=== PATIENT | male | born 1970 | race Caucasian/White ===

== ENCOUNTER 2022-09-02 16:08 | Inpatient (IN) | payer MEDICAID ==
[~2022-09-02] VITALS: Ht 177.8 cm; Wt 126.1 kg
[2022-09-02] VITALS (7 sets, daily range): BP systolic 103–136; BP diastolic 50–97
[2022-09-02 17:29] LABS: BASOPHILS % (AUTO) 0.9 % (0.0-2.0); EOSINOPHILS % (AUTO) 1.6 % (1.0-6.0); HEMATOCRIT 34.9 % (41-53); HEMOGLOBIN 11.2 g/dL (13.5-17.5); LYMPHOCYTES # (AUTO) 1.4 K/uL (1.0-4.8); LYMPHOCYTES % (AUTO) 15.8 % (22.0-44.0); MEAN CORPUSCULAR HEMOGLOBIN 31.4 pg (26.0-34.0); MEAN CORPUSCULAR HGB CONC 32.3 G/dL (31.0-37.0); MEAN CORPUSCULAR VOLUME 98 fL (80-100); MONOCYTES # (AUTO) 0.8 K/uL (0.1-1.0); MONOCYTES % (AUTO) 9.2 % (2.0-9.0); NEUTROPHILS # (AUTO) 6.3 K/uL (1.8-7.7); NEUTROPHILS % (AUTO) 72.5 % (40.0-70.0); PLATELET COUNT (AUTO) 423 K/uL (150-450); RED BLOOD CELL COUNT(AUTO) 3.58 MIL/uL (4.50-5.90)
[2022-09-02 17:40] LABS: CREATININE 10.86 mg/dL (0.60-1.30)
[2022-09-02 17:42] LABS: POTASSIUM 6.5 mmol/L (3.5-5.1)
[2022-09-02] MEDS ORDERED: SODIUM BICARBONATE [ADULT] 8.4% 50 MEQ/50 ML SYRINGE IVP ONE (17:45)
[2022-09-02] MEDS ORDERED: SODIUM POLYSTYRENE SULFONATE 15 GM/60 ML SUSPENSION BOTTLE PO ONE (17:45)
[2022-09-02] MEDS ORDERED: INSULIN REGULAR, HUMAN 100 UNITS/ML IVP ONE (17:45)
[2022-09-02] MEDS ORDERED: CALCIUM GLUCONATE 100 MG/ML 10 ML IVP ONE (17:45)
[2022-09-02] MEDS ORDERED: DEXTROSE 50%-WATER 25 GM/50 ML SYRINGE IVP ONE (17:45)
[2022-09-02] MEDS ORDERED: ONDANSETRON HCL 4 MG/2 ML VIAL IVP PRN (18:15)
[2022-09-02] MEDS ORDERED: ACETAMINOPHEN 325 MG TABLET PO PRN (18:15)
[2022-09-02 18:35] LABS: GLUCOMETER DEV NAME(LOC) ERT.5; GLUCOSE,POINT OF CARE 92 MG/DL (70-110)
[2022-09-02 19:45] LABS: COVID AG,FIA SOURCE NASOPHARYNGEAL
[2022-09-03] VITALS (17 sets, daily range): BP systolic 91–118; BP diastolic 56–76
[2022-09-03] MEDS ORDERED: MAGNESIUM HYDROXIDE SUSPENSION 30 ML UDCUP PO PRN (01:15)
[2022-09-03] MEDS ORDERED: IPRATROPIUM BROMIDE 0.5 MG/2.5 ML NEB SOLUTION NEB PRN (01:15)
[2022-09-03] MEDS ORDERED: ZOLPIDEM TARTRATE 5 MG TABLET PO PRN (01:15)
[2022-09-03] MEDS ORDERED: HYDROCODONE/ACETAMINOPHEN 5-325 MG TABLET PO PRN (01:15)
[2022-09-03] MEDS ORDERED: BISACODYL 10 MG RECTAL RECTAL SUPPOSITORY PR PRN (01:15)
[2022-09-03] MEDS ORDERED: MORPHINE SULFATE 2 MG/ML SYRINGE IVP PRN (01:15)
[2022-09-03] MEDS ORDERED: ALBUTEROL SULFATE 2.5 MG/0.5 ML NEB SOLUTION NEB PRN (01:15)
[2022-09-03 02:05] LABS: CALCIUM, TOTAL 7.1 mg/dL (8.8-10.5); CREATININE 7.77 mg/dL (0.60-1.30); POTASSIUM 3.7 mmol/L (3.5-5.1)
[2022-09-03 02:14] LABS: ALBUMIN 3.1 g/dL (3.4-5.0); BILIRUBIN,TOTAL 0.3 mg/dL (0.1-1.0); TOTAL PROTEIN, SERUM 6.8 g/dL (6.4-8.2)
[2022-09-03 07:00] LABS: APPEARANCE,URINE CLEAR (CLEAR); BILIRUBIN,URINE NEGATIVE (NEGATIVE); GLUCOSE, URINE (UA) NEGATIVE (NEGATIVE); KETONES,URINE NEGATIVE (NEGATIVE); LEUKOCYTE ESTERASE ,URINE MODERATE (NEGATIVE); NITRATE,URINE NEGATIVE (NEGATIVE); OCCULT BLOOD,URINE NEGATIVE (NEGATIVE); PROTEIN,URINE 30-70 mg/dL (NEGATIVE); UROBILINOGEN,URINE <=1.0 mg/dL (<=1.0)
[2022-09-03 07:05] LABS: AMPHET/METH SCREEN,URINE NEGATIVE (NEGATIVE); BARBITURATE SCREEN, URINE NEGATIVE (NEGATIVE); BENZODIAZEPINES SCREEN,URINE NEGATIVE (NEGATIVE); CANNABINOID SCREEN,URINE NEGATIVE (NEGATIVE); COCAINE SCREEN,URINE NEGATIVE (NEGATIVE); METHADONE SCREEN, URINE NEGATIVE (NEGATIVE); OPIATE SCREEN,URINE NEGATIVE (NEGATIVE)
[2022-09-03 07:06] LABS: PHENCYCLIDINE SCREEN,URINE NEGATIVE (NEGATIVE)
[2022-09-03 07:08] LABS: BACTERIA,URINE None Seen /HPF (None Seen); RBC,URINE None Seen /HPF (0-2)
[2022-09-03 07:10] LABS: CREATININE,URINE RANDOM 96.6 mg/dL (30.0-125.0); PROTEIN,URINE RANDOM 49 mg/dL (0-11.9); SODIUM,URINE RANDOM 41 mmol/l (20-110); UREA NITROGEN,URINE RANDOM 450 mg/dL (350-1000)
[2022-09-03] MEDS: ONDANSETRON HCL 4 MG/2 ML VIAL IVP PRN ×3 (08:52→20:46)
[2022-09-03] MEDS: ATORVASTATIN CALCIUM 20 MG TABLET PO SCH (08:52)
[2022-09-03] MEDS: ASPIRIN 81 MG DR TABLET PO SCH (08:52)
[2022-09-03] MEDS: PANTOPRAZOLE SODIUM 40 MG DR TABLET PO SCH (08:52)
[2022-09-03] MEDS: HEPARIN SODIUM,PORCINE 5,000 UNITS/ML VIAL SQ SCH ×3 (08:52→23:38)
[2022-09-03] MEDS: METOPROLOL TARTRATE 25 MG TABLET PO SCH ×2 (08:52→20:42)
[2022-09-03] MEDS: ACETAMINOPHEN 325 MG TABLET PO PRN (10:29)
[2022-09-03 10:30] LABS: BASOPHILS % (AUTO) 0.7 % (0.0-2.0); EOSINOPHILS % (AUTO) 1.7 % (1.0-6.0); HEMATOCRIT 28.4 % (41-53); HEMOGLOBIN 9.5 g/dL (13.5-17.5); LYMPHOCYTES # (AUTO) 0.9 K/uL (1.0-4.8); LYMPHOCYTES % (AUTO) 14.6 % (22.0-44.0); MEAN CORPUSCULAR HEMOGLOBIN 32.1 pg (26.0-34.0); MEAN CORPUSCULAR HGB CONC 33.6 G/dL (31.0-37.0); MEAN CORPUSCULAR VOLUME 96 fL (80-100); MONOCYTES # (AUTO) 0.6 K/uL (0.1-1.0); MONOCYTES % (AUTO) 10.1 % (2.0-9.0); NEUTROPHILS # (AUTO) 4.5 K/uL (1.8-7.7); NEUTROPHILS % (AUTO) 72.9 % (40.0-70.0); PLATELET COUNT (AUTO) 338 K/uL (150-450); RED BLOOD CELL COUNT(AUTO) 2.96 MIL/uL (4.50-5.90); RED CELL DISTRIBUTION WIDTH 16.2 % (11.5-14.5)
[2022-09-03 10:45] LABS: ALBUMIN 3.1 g/dL (3.4-5.0); BILIRUBIN,TOTAL 0.3 mg/dL (0.1-1.0); CALCIUM, TOTAL 6.5 mg/dL (8.8-10.5); CREATININE 8.44 mg/dL (0.60-1.30); POTASSIUM 4.1 mmol/L (3.5-5.1); TOTAL PROTEIN, SERUM 6.8 g/dL (6.4-8.2)
[2022-09-03] MEDS ORDERED: HEPARIN SODIUM,PORCINE 1,000 UNITS/ML VIAL IVCATH ONE ×2 (15:15)
[2022-09-03] MEDS ORDERED: HEPARIN SODIUM,PORCINE 1,000 UNITS/ML VIAL IVP ONE ×2 (16:23)
[2022-09-04] MEDS ORDERED: METOCLOPRAMIDE HCL 5 MG/ML 2 ML VIAL IVP ONE (00:15)
[2022-09-04 04:48] VITALS: BP 140/94
[2022-09-04 06:48] LABS: BASOPHILS % (AUTO) 0.6 % (0.0-2.0); EOSINOPHILS % (AUTO) 1.9 % (1.0-6.0); HEMATOCRIT 30.1 % (41-53); LYMPHOCYTES # (AUTO) 1.8 K/uL (1.0-4.8); LYMPHOCYTES % (AUTO) 24.7 % (22.0-44.0); MEAN CORPUSCULAR HEMOGLOBIN 31.9 pg (26.0-34.0); MEAN CORPUSCULAR HGB CONC 33.3 G/dL (31.0-37.0); MEAN CORPUSCULAR VOLUME 96 fL (80-100); MONOCYTES % (AUTO) 13.7 % (2.0-9.0); NEUTROPHILS # (AUTO) 4.4 K/uL (1.8-7.7); NEUTROPHILS % (AUTO) 59.1 % (40.0-70.0); PLATELET COUNT (AUTO) 357 K/uL (150-450); RED BLOOD CELL COUNT(AUTO) 3.15 MIL/uL (4.50-5.90); RED CELL DISTRIBUTION WIDTH 15.9 % (11.5-14.5)
[2022-09-04 06:56] LABS: PROTHROMBIN TIME 11.1 SEC (9.4-11.6)
[2022-09-04 07:07] LABS: ALBUMIN 3.2 g/dL (3.4-5.0); BILIRUBIN,TOTAL 0.3 mg/dL (0.1-1.0); CALCIUM, TOTAL 6.5 mg/dL (8.8-10.5); CHOL/HDL RATIO 3.2 (4.2-7.3); CREATININE 5.77 mg/dL (0.60-1.30); POTASSIUM 3.9 mmol/L (3.5-5.1); TOTAL PROTEIN, SERUM 7.2 g/dL (6.4-8.2)
[2022-09-04 07:17] VITALS: BP 111/58
[2022-09-04] MEDS: HEPARIN SODIUM,PORCINE 5,000 UNITS/ML VIAL SQ SCH ×2 (08:00→15:09)
[2022-09-04 08:06] LABS: HEPATITIS C AB (EIA) <0.1 s/co ratio (0.0-0.9)
[2022-09-04] MEDS: ATORVASTATIN CALCIUM 20 MG TABLET PO SCH (08:42)
[2022-09-04] MEDS: METOPROLOL TARTRATE 25 MG TABLET PO SCH ×2 (08:42→21:00)
[2022-09-04] MEDS: PANTOPRAZOLE SODIUM 40 MG DR TABLET PO SCH (08:43)
[2022-09-04] MEDS: ASPIRIN 81 MG DR TABLET PO SCH (08:43)
[2022-09-04 10:49] VITALS: BP 110/68
[2022-09-04 14:45] VITALS: BP 112/60
[2022-09-04 20:13] VITALS: BP 108/64
[2022-09-05] VITALS (11 sets, daily range): BP systolic 102–121; BP diastolic 61–84
[2022-09-05 06:25] LABS: BASOPHILS % (AUTO) 0.6 % (0.0-2.0); EOSINOPHILS % (AUTO) 2.1 % (1.0-6.0); HEMATOCRIT 27.3 % (41-53); HEMOGLOBIN 9.4 g/dL (13.5-17.5); LYMPHOCYTES # (AUTO) 1.2 K/uL (1.0-4.8); LYMPHOCYTES % (AUTO) 16.5 % (22.0-44.0); MEAN CORPUSCULAR HEMOGLOBIN 32.6 pg (26.0-34.0); MEAN CORPUSCULAR HGB CONC 34.6 G/dL (31.0-37.0); MEAN CORPUSCULAR VOLUME 94 fL (80-100); MONOCYTES # (AUTO) 0.8 K/uL (0.1-1.0); NEUTROPHILS % (AUTO) 69.8 % (40.0-70.0); PLATELET COUNT (AUTO) 290 K/uL (150-450); RED BLOOD CELL COUNT(AUTO) 2.89 MIL/uL (4.50-5.90); RED CELL DISTRIBUTION WIDTH 15.2 % (11.5-14.5)
[2022-09-05 06:39] LABS: BILIRUBIN,TOTAL 0.3 mg/dL (0.1-1.0); CREATININE 6.16 mg/dL (0.60-1.30); POTASSIUM 3.5 mmol/L (3.5-5.1); TOTAL PROTEIN, SERUM 6.8 g/dL (6.4-8.2)
[2022-09-05] MEDS: PANTOPRAZOLE SODIUM 40 MG DR TABLET PO SCH (08:50)
[2022-09-05] MEDS: ATORVASTATIN CALCIUM 20 MG TABLET PO SCH (08:50)
[2022-09-05] MEDS: METOPROLOL TARTRATE 25 MG TABLET PO SCH ×2 (08:50→20:31)
[2022-09-05] MEDS: ASPIRIN 81 MG DR TABLET PO SCH (08:50)
[2022-09-05] MEDS ORDERED: SODIUM CHLORIDE 0.9% 1,000 ML ONE ×3 (09:46→14:02)
[2022-09-05] MEDS ORDERED: SODIUM CHLORIDE 0.9% 1,000 ML IV ONE (10:00)
[2022-09-05] MEDS ORDERED: LIDOCAINE/PF 2% 5 ML VIAL ONE (11:31)
[2022-09-05] MEDS ORDERED: BUPIVACAINE HCL/PF 0.5% 30 ML VIAL ONE (11:31)
[2022-09-05] MEDS ORDERED: HEPARIN SODIUM,PORCINE 5,000 UNITS/ML VIAL ONE (11:31)
[2022-09-05] MEDS ORDERED: VANCOMYCIN HCL 1 GM/VIAL ONE (11:43)
[2022-09-05] MEDS ORDERED: LIDOCAINE/PF 1% 30 ML VIAL ONE (11:50)
[2022-09-05] MEDS ORDERED: ONDANSETRON HCL 4 MG/2 ML VIAL IVP ONE (12:00)
[2022-09-05] MEDS ORDERED: LIDOCAINE/PF 2% 5 ML VIAL IM ONE (12:00)
[2022-09-05] MEDS ORDERED: PROPOFOL 1% 20 ML VIAL IVP ONE (12:00)
[2022-09-05] MEDS ORDERED: ROCURONIUM BROMIDE 10 MG/ML 5 ML VIAL IVP ONE (12:00)
[2022-09-05] MEDS ORDERED: FentaNYL CITRATE PF 100 MCG/2 ML VIAL IVP ONE (12:00)
[2022-09-05] MEDS ORDERED: MIDAZOLAM HCL 2 MG/2 ML VIAL IVP ONE (12:00)
[2022-09-05] MEDS ORDERED: SUCCINYLCHOLINE CHLORIDE 20 MG/ML 10 ML VIAL IVP ONE (12:00)
[2022-09-05] MEDS ORDERED: HEPARIN SODIUM,PORCINE 1,000 UNITS/ML VIAL ONE ×2 (12:31→14:18)
[2022-09-05] MEDS ORDERED: HEPARIN SODIUM 1000 UNITS/NS 500 ML ONE (12:35)
[2022-09-05] MEDS: EPOETIN ALFA 10,000 UNITS/ML 2 ML VIAL SQ SCH (13:00)
[2022-09-05] MEDS ORDERED: SUGAMMADEX SODIUM 200 MG/2 ML VIAL IVP ONE (14:53)
[2022-09-05] MEDS ORDERED: ACETAMINOPHEN 1000 MG/ISO-OSM 100 ML IV ONE ×2 (15:30)
[2022-09-05] MEDS ORDERED: NALOXONE HCL 1 MG/ML 2 ML SYRINGE IVP PRN (15:45)
[2022-09-05] MEDS ORDERED: FentaNYL CITRATE PF 100 MCG/2 ML VIAL IVP PRN (15:45)
[2022-09-06] VITALS (14 sets, daily range): BP systolic 118–145; BP diastolic 69–94
[2022-09-06 06:52] LABS: BASOPHILS % (AUTO) 0.4 % (0.0-2.0); EOSINOPHILS % (AUTO) 1.1 % (1.0-6.0); HEMATOCRIT 26.6 % (41-53); HEMOGLOBIN 9.1 g/dL (13.5-17.5); LYMPHOCYTES # (AUTO) 0.8 K/uL (1.0-4.8); LYMPHOCYTES % (AUTO) 10.2 % (22.0-44.0); MEAN CORPUSCULAR HEMOGLOBIN 32.3 pg (26.0-34.0); MEAN CORPUSCULAR HGB CONC 34.1 G/dL (31.0-37.0); MEAN CORPUSCULAR VOLUME 95 fL (80-100); MONOCYTES % (AUTO) 12.7 % (2.0-9.0); NEUTROPHILS # (AUTO) 6.2 K/uL (1.8-7.7); NEUTROPHILS % (AUTO) 75.6 % (40.0-70.0); PLATELET COUNT (AUTO) 281 K/uL (150-450); RED BLOOD CELL COUNT(AUTO) 2.81 MIL/uL (4.50-5.90); RED CELL DISTRIBUTION WIDTH 15.6 % (11.5-14.5)
[2022-09-06 07:03] LABS: ALBUMIN 2.9 g/dL (3.4-5.0); BILIRUBIN,TOTAL 0.3 mg/dL (0.1-1.0); CREATININE 5.94 mg/dL (0.60-1.30); POTASSIUM 3.7 mmol/L (3.5-5.1); TOTAL PROTEIN, SERUM 6.6 g/dL (6.4-8.2)
[2022-09-06 07:43] LABS: CALCIUM, TOTAL 5.8 mg/dL (8.8-10.5)
[2022-09-06] MEDS: ASPIRIN 81 MG DR TABLET PO SCH (09:26)
[2022-09-06] MEDS: PANTOPRAZOLE SODIUM 40 MG DR TABLET PO SCH (09:27)
[2022-09-06] MEDS: ATORVASTATIN CALCIUM 20 MG TABLET PO SCH (09:27)
[2022-09-06] MEDS: METOPROLOL TARTRATE 25 MG TABLET PO SCH ×2 (09:27→20:03)
[2022-09-06] MEDS ORDERED: CALCIUM GLUCONATE 2,000 MG in DEXTROSE 5%-WATER 50 ML IV ONE (09:30)
[2022-09-06] MEDS ORDERED: SODIUM CHLORIDE 0.9% 250 ML IV ONE ×2 (10:29→14:29)
[2022-09-06] MEDS ORDERED: HEPARIN SODIUM,PORCINE 1,000 UNITS/ML VIAL IVP ONE (12:00)
[2022-09-06] MEDS: CALCITRIOL 0.25 MCG CAPSULE PO SCH (17:49)
[2022-09-07 00:25] VITALS: BP 120/88
[2022-09-07 05:09] VITALS: BP 119/76
[2022-09-07 08:01] VITALS: BP 105/65
[2022-09-07] MEDS: CALCITRIOL 0.25 MCG CAPSULE PO SCH (08:31)
[2022-09-07] MEDS: ACETAMINOPHEN 325 MG TABLET PO PRN (08:32)
[2022-09-07] MEDS: ASPIRIN 81 MG DR TABLET PO SCH (08:32)
[2022-09-07] MEDS: ATORVASTATIN CALCIUM 20 MG TABLET PO SCH (08:32)
[2022-09-07] MEDS: METOPROLOL TARTRATE 25 MG TABLET PO SCH ×2 (08:32→20:18)
[2022-09-07] MEDS: PANTOPRAZOLE SODIUM 40 MG DR TABLET PO SCH (08:32)
[2022-09-07 09:46] LABS: BASOPHILS % (AUTO) 0.8 % (0.0-2.0); EOSINOPHILS % (AUTO) 2.1 % (1.0-6.0); HEMATOCRIT 28.1 % (41-53); HEMOGLOBIN 9.4 g/dL (13.5-17.5); LYMPHOCYTES % (AUTO) 12.9 % (22.0-44.0); MEAN CORPUSCULAR HEMOGLOBIN 31.9 pg (26.0-34.0); MEAN CORPUSCULAR HGB CONC 33.3 G/dL (31.0-37.0); MEAN CORPUSCULAR VOLUME 96 fL (80-100); NEUTROPHILS # (AUTO) 5.7 K/uL (1.8-7.7); NEUTROPHILS % (AUTO) 71.2 % (40.0-70.0); PLATELET COUNT (AUTO) 227 K/uL (150-450); RED BLOOD CELL COUNT(AUTO) 2.94 MIL/uL (4.50-5.90); RED CELL DISTRIBUTION WIDTH 15.8 % (11.5-14.5)
[2022-09-07 10:03] LABS: ALBUMIN 2.8 g/dL (3.4-5.0); BILIRUBIN,TOTAL 0.4 mg/dL (0.1-1.0); CALCIUM, TOTAL 7.1 mg/dL (8.8-10.5); CREATININE 4.51 mg/dL (0.60-1.30); TOTAL PROTEIN, SERUM 6.8 g/dL (6.4-8.2)
[2022-09-07 11:38] VITALS: BP 97/54
[2022-09-07] MEDS: CHOLECALCIFEROL (VIT D3) 2,000 UNITS [50 MCG] TABLET PO SCH (14:36)
[2022-09-07 15:19] VITALS: BP 104/66
[2022-09-07 20:38] VITALS: BP 95/52
[2022-09-08 06:00] LABS: BASOPHILS % (AUTO) 0.6 % (0.0-2.0); EOSINOPHILS % (AUTO) 3.8 % (1.0-6.0); HEMATOCRIT 26.4 % (41-53); HEMOGLOBIN 8.8 g/dL (13.5-17.5); LYMPHOCYTES # (AUTO) 1.3 K/uL (1.0-4.8); LYMPHOCYTES % (AUTO) 16.6 % (22.0-44.0); MEAN CORPUSCULAR HEMOGLOBIN 32.1 pg (26.0-34.0); MEAN CORPUSCULAR HGB CONC 33.2 G/dL (31.0-37.0); MEAN CORPUSCULAR VOLUME 97 fL (80-100); MONOCYTES # (AUTO) 1.2 K/uL (0.1-1.0); MONOCYTES % (AUTO) 15.9 % (2.0-9.0); NEUTROPHILS # (AUTO) 4.9 K/uL (1.8-7.7); NEUTROPHILS % (AUTO) 63.1 % (40.0-70.0); PLATELET COUNT (AUTO) 197 K/uL (150-450); RED BLOOD CELL COUNT(AUTO) 2.73 MIL/uL (4.50-5.90); RED CELL DISTRIBUTION WIDTH 15.5 % (11.5-14.5)
[2022-09-08 06:17] LABS: ALBUMIN 2.7 g/dL (3.4-5.0); BILIRUBIN,TOTAL 0.4 mg/dL (0.1-1.0); CREATININE 5.76 mg/dL (0.60-1.30); POTASSIUM 3.5 mmol/L (3.5-5.1); TOTAL PROTEIN, SERUM 6.3 g/dL (6.4-8.2)
[2022-09-08 07:06] VITALS: BP 98/62
[2022-09-08 07:09] VITALS: BP 105/61
[2022-09-08] MEDS: CHOLECALCIFEROL (VIT D3) 2,000 UNITS [50 MCG] TABLET PO SCH (08:26)
[2022-09-08] MEDS: ATORVASTATIN CALCIUM 20 MG TABLET PO SCH (08:26)
[2022-09-08] MEDS: ASPIRIN 81 MG DR TABLET PO SCH (08:26)
[2022-09-08] MEDS: METOPROLOL TARTRATE 25 MG TABLET PO SCH ×2 (08:26→21:10)
[2022-09-08] MEDS: PANTOPRAZOLE SODIUM 40 MG DR TABLET PO SCH (08:26)
[2022-09-08] MEDS: CALCITRIOL 0.25 MCG CAPSULE PO SCH (08:27)
[2022-09-08] MEDS: EPOETIN ALFA 10,000 UNITS/ML 2 ML VIAL SQ SCH (08:28)
[2022-09-08] MEDS ORDERED: EPOETIN ALFA 10,000 UNITS/ML 2 ML VIAL SQ SCH (09:00)
[2022-09-08 11:54] VITALS: BP 100/57
[2022-09-08] MEDS ORDERED: CALC0.2521 PO (13:08)
[2022-09-08] MEDS ORDERED: ATOR20TA86 PO (13:08)
[2022-09-08] MEDS ORDERED: ASPI-1444 PO (13:08)
[2022-09-08] MEDS ORDERED: METO25 PO (13:09)
[2022-09-08] MEDS ORDERED: CHOL25TA4 PO (13:09)
[2022-09-08] MEDS ORDERED: EPOE10003 SQ (13:16)
[2022-09-08 19:15] VITALS: BP 106/64
[2022-09-08 23:18] VITALS: BP 105/71
[2022-09-09] VITALS (11 sets, daily range): BP systolic 96–128; BP diastolic 54–85
[2022-09-09] MEDS: ATORVASTATIN CALCIUM 20 MG TABLET PO SCH (08:01)
[2022-09-09] MEDS: CHOLECALCIFEROL (VIT D3) 2,000 UNITS [50 MCG] TABLET PO SCH (08:01)
[2022-09-09] MEDS: CALCITRIOL 0.25 MCG CAPSULE PO SCH (08:01)
[2022-09-09] MEDS: ASPIRIN 81 MG DR TABLET PO SCH (08:02)
[2022-09-09] MEDS: PANTOPRAZOLE SODIUM 40 MG DR TABLET PO SCH (08:02)
[2022-09-09] MEDS: METOPROLOL TARTRATE 25 MG TABLET PO SCH (08:02)
[2022-09-09] MEDS ORDERED: HEPARIN SODIUM,PORCINE 1,000 UNITS/ML VIAL IVP ONE (12:00)
[2022-09-09] MEDS ORDERED: HEPARIN SODIUM,PORCINE 1,000 UNITS/ML VIAL IVCATH ONE ×2 (12:45)
== END 2022-09-09 14:10 | disposition home or self-care (01) | DRG 444 ==
LOC: EMS 16:08 → 5S 18:25 → EMS 21:14
PROVIDERS: ADMIT Hospitalist; ATTEND Hospitalist
PROC: 5A1D70Z Performance of Urinary Filtration, Intermittent, Less than 6 Hours Per Day (ICD-10-PCS; 2022-09-03)
PROC: 06HY33Z Insertion of Infusion Device into Lower Vein, Percutaneous Approach (ICD-10-PCS; principal; 2022-09-04)
PROC: 03180ZD Bypass Left Brachial Artery to Upper Arm Vein, Open Approach (ICD-10-PCS; 2022-09-05)
PROC: 0JH63XZ Insertion of Tunneled Vascular Access Device into Chest Subcutaneous Tissue and Fascia, Percutaneous Approach (ICD-10-PCS; 2022-09-05)
PROC: 5A1D70Z Performance of Urinary Filtration, Intermittent, Less than 6 Hours Per Day (ICD-10-PCS; 2022-09-05)
PROC: 05CF3ZZ Extirpation of Matter from Left Cephalic Vein, Percutaneous Approach (ICD-10-PCS; 2022-09-05)
PROC: 02H633Z Insertion of Infusion Device into Right Atrium, Percutaneous Approach (ICD-10-PCS; 2022-09-05)
PROC: B5181ZA Fluoroscopy of Superior Vena Cava using Low Osmolar Contrast, Guidance (ICD-10-PCS; 2022-09-05)
PROC: B548ZZA Ultrasonography of Superior Vena Cava, Guidance (ICD-10-PCS; 2022-09-05)
PROC: 5A1D70Z Performance of Urinary Filtration, Intermittent, Less than 6 Hours Per Day (ICD-10-PCS; 2022-09-06)
PROC: 5A1D70Z Performance of Urinary Filtration, Intermittent, Less than 6 Hours Per Day (ICD-10-PCS; 2022-09-07)
DX: N17.9 Acute kidney failure, unspecified (principal); E87.20 Acidosis, unspecified; D63.1 Anemia in chronic kidney disease; I12.0 Hypertensive chronic kidney disease with stage 5 chronic kidney disease or end stage renal disease; Q61.2 Polycystic kidney, adult type; I82.612 Acute embolism and thrombosis of superficial veins of left upper extremity; I95.9 Hypotension, unspecified; E87.5 Hyperkalemia; N18.6 End stage renal disease; G89.29 Other chronic pain; E66.01 Morbid (severe) obesity due to excess calories; Z20.822 Contact with and (suspected) exposure to COVID-19; Z68.39 Body mass index [BMI] 39.0-39.9, adult; Z79.899 Other long term (current) drug therapy
CPT/HCPCS: 71045; 76770; 80048; 80053; 80061; 81001; 82306; 82570; 82962; 83970; 84156; 84300; 84484; 84540; 85025; 85610; 85730; 86803; 87081; 87086; 87340; 88305; 90935; 93005; 93306; 93970; 99291; G0378; J0131; J0330; J0610; J0885; J1644; J1815; J2250; J2405; J2704; J2765; J3010; J3370; J3490; J7030; J7050; J7060; Q9967; 36415-L1; 36415-TC; Z7610

== ENCOUNTER 2022-09-22 17:01 | Emergency (ER) | payer MEDICAID ==
[~2022-09-22] VITALS: Ht 175.3 cm; Wt 90.9 kg
[~2022-09-22 17:01] MED LIST: ASPI-1444 PO; ATOR20TA86 PO; CALC0.2521 PO; CHOL25TA4 PO; EPOE10003 SQ; METO25 PO
[2022-09-22 18:32] LABS: BASOPHILS % (AUTO) 0.2 % (0.0-2.0); HEMATOCRIT 31.2 % (41-53); HEMOGLOBIN 10.1 g/dL (13.5-17.5); LYMPHOCYTES # (AUTO) 0.7 K/uL (1.0-4.8); LYMPHOCYTES % (AUTO) 11.9 % (22.0-44.0); MEAN CORPUSCULAR HEMOGLOBIN 31.3 pg (26.0-34.0); MEAN CORPUSCULAR HGB CONC 32.2 G/dL (31.0-37.0); MEAN CORPUSCULAR VOLUME 97 fL (80-100); MONOCYTES # (AUTO) 0.5 K/uL (0.1-1.0); MONOCYTES % (AUTO) 7.9 % (2.0-9.0); NEUTROPHILS # (AUTO) 4.7 K/uL (1.8-7.7); RED BLOOD CELL COUNT(AUTO) 3.21 MIL/uL (4.50-5.90); RED CELL DISTRIBUTION WIDTH 14.6 % (11.5-14.5)
[2022-09-22 18:35] LABS: CALCIUM, TOTAL 8.8 mg/dL (8.8-10.5); CREATININE 3.28 mg/dL (0.60-1.30); POTASSIUM 3.3 mmol/L (3.5-5.1)
[2022-09-22 18:41] LABS: ALBUMIN 3.8 g/dL (3.4-5.0); BILIRUBIN,TOTAL 0.5 mg/dL (0.1-1.0); TOTAL PROTEIN, SERUM 8.4 g/dL (6.4-8.2)
[2022-09-22 18:43] LABS: PLATELET COUNT (AUTO) 86 K/uL (150-450)
[2022-09-22 18:44] LABS: PLATELET MORPHOLOGY COMMENT LARGE PLTS PRESENT
[2022-09-23 01:06] VITALS: BP 116/65
== END 2022-09-23 01:36 | disposition home or self-care (01) ==
LOC: EMS 17:09
DX: R42 Dizziness and giddiness (principal); E86.0 Dehydration; I12.0 Hypertensive chronic kidney disease with stage 5 chronic kidney disease or end stage renal disease; N18.6 End stage renal disease; Z99.2 Dependence on renal dialysis; Z98.890 Other specified postprocedural states
CPT/HCPCS: 70450; 71045; 80053; 84484; 85025; 93005; 99285; 36415-L1; 36415-TC

== ENCOUNTER 2022-09-26 09:16 | Emergency (ER) | payer MEDICAID ==
[~2022-09-26] VITALS: Ht 177.8 cm; Wt 125.0 kg
[2022-09-26] MEDS ORDERED: OxyCODONE HCL/ACETAMINOPHEN 5-325 MG TABLET PO ONE (11:00)
[2022-09-26] MEDS ORDERED: PERCT PO (12:39)
[2022-09-26 12:57] VITALS: BP 129/82
== END 2022-09-26 13:20 | disposition home or self-care (01) ==
LOC: EMS 09:22
DX: S80.01XA Contusion of right knee, initial encounter (principal); I10 Essential (primary) hypertension; N28.9 Disorder of kidney and ureter, unspecified; W19.XXXA Unspecified fall, initial encounter; Y93.89 Activity, other specified; Y92.89 Other specified places as the place of occurrence of the external cause; Y99.8 Other external cause status
CPT/HCPCS: 99282; 99283

== ENCOUNTER 2022-09-27 03:38 | Emergency (ER) | payer MEDICAID ==
[~2022-09-27] VITALS: Ht 177.8 cm; Wt 136.4 kg
[~2022-09-27 03:38] MED LIST changes: +PERCT PO
[2022-09-27 05:08] LABS: BASOPHILS % (AUTO) 0.3 % (0.0-2.0); EOSINOPHILS % (AUTO) 0.1 % (1.0-6.0); HEMATOCRIT 26.7 % (41-53); HEMOGLOBIN 8.9 g/dL (13.5-17.5); LYMPHOCYTES # (AUTO) 1.1 K/uL (1.0-4.8); LYMPHOCYTES % (AUTO) 11.1 % (22.0-44.0); MEAN CORPUSCULAR HEMOGLOBIN 31.6 pg (26.0-34.0); MEAN CORPUSCULAR HGB CONC 33.3 G/dL (31.0-37.0); MEAN CORPUSCULAR VOLUME 95 fL (80-100); MONOCYTES # (AUTO) 1.6 K/uL (0.1-1.0); MONOCYTES % (AUTO) 16.3 % (2.0-9.0); NEUTROPHILS % (AUTO) 72.2 % (40.0-70.0); PLATELET COUNT (AUTO) 256 K/uL (150-450); RED CELL DISTRIBUTION WIDTH 14.6 % (11.5-14.5)
[2022-09-27 05:19] LABS: CREATININE 7.86 mg/dL (0.60-1.30); POTASSIUM 3.8 mmol/L (3.5-5.1)
[2022-09-27 05:26] LABS: ALBUMIN 2.9 g/dL (3.4-5.0); BILIRUBIN,TOTAL 0.5 mg/dL (0.1-1.0); TOTAL PROTEIN, SERUM 7.4 g/dL (6.4-8.2)
[2022-09-27 05:28] VITALS: BP 125/67
[2022-09-27] MEDS ORDERED: HYDROCODONE/ACETAMINOPHEN 5-325 MG TABLET PO ONE (05:45)
== END 2022-09-27 10:18 | disposition home or self-care (01) ==
LOC: EMS 03:40
DX: F41.9 Anxiety disorder, unspecified (principal); D64.9 Anemia, unspecified; E87.1 Hypo-osmolality and hyponatremia; I12.0 Hypertensive chronic kidney disease with stage 5 chronic kidney disease or end stage renal disease; N18.6 End stage renal disease; Z99.2 Dependence on renal dialysis
CPT/HCPCS: 80053; 85025; 85379; 99283

== ENCOUNTER 2024-07-29 19:56 | Emergency (ER) | payer MEDICAID, OTHER ==
[~2024-07-29] VITALS: Ht 185.4 cm; Wt 105.0 kg
[~2024-07-29 19:56] MED LIST changes: +ATOR20TA PO; -ATOR20TA86 PO
[2024-07-29 20:00] VITALS: TEMP 98
[2024-07-29] MEDS ORDERED: IBUP-1492 PO (23:51)
[2024-07-30] MEDS: KETOROLAC TROMETHAMINE 30 MG/ML VIAL IM ONE
[2024-07-30 01:42] VITALS: BP 135/74; PULSE 89; RESP 16; O2SAT 99
== END 2024-07-30 01:46 | disposition home or self-care (01) ==
LOC: EMS 19:57
DX: S82.001A Unspecified fracture of right patella, initial encounter for closed fracture (principal); S42.401A Unspecified fracture of lower end of right humerus, initial encounter for closed fracture; I10 Essential (primary) hypertension; Z79.82 Long term (current) use of aspirin; Z79.899 Other long term (current) drug therapy; Y04.0XXA Assault by unarmed brawl or fight, initial encounter; Y93.89 Activity, other specified; Y92.89 Other specified places as the place of occurrence of the external cause; Y99.8 Other external cause status
CPT/HCPCS: 99284; 29105; 29505; 73080; 73562; 96372; J1885

== ENCOUNTER 2025-09-14 15:49 | Inpatient (IN) | payer OTHER ==
[~2025-09-14] VITALS: Ht 175.3 cm; Wt 124.0 kg
[~2025-09-14 15:49] MED LIST changes: +IBUP-1492 PO
[2025-09-14 17:05] LABS: PLATELET COUNT (AUTO) 432 K/uL (150-450); RED BLOOD CELL COUNT(AUTO) 4.75 MIL/uL (4.50-5.90); RED CELL DISTRIBUTION WIDTH 18.5 % (11.5-14.5); WHITE BLOOD COUNT (AUTO) 10.5 K/uL (4.5-11.0)
[2025-09-14 17:08] LABS: CALCIUM, TOTAL 11.2 mg/dL (8.8-10.5); CREATININE 5.46 mg/dL (0.60-1.30); GLOMERULAR FILTR. RATE CALC 11 mL/min (>60); GLUCOSE,RANDOM 103 mg/dL (70-110); SODIUM SERUM 134 mmol/L (136-145); UREA NITROGEN, BLOOD 27 mg/dL (7-18)
[2025-09-14 17:17] LABS: TROPONIN I-HIGH SENSITIVITY 12 ng/L (<76)
[2025-09-14] MEDS: SODIUM CHLORIDE 0.9% 250 ML IV ONE (17:44)
[2025-09-14] MEDS: ALBUMIN HUMAN 5%-12.5GM/250ML 250 ML IV ONE (20:45)
[2025-09-14] MEDS ORDERED: ONDANSETRON HCL 4 MG/2 ML VIAL IVP PRN (20:45)
[2025-09-14] MEDS: DOCUSATE SODIUM 100 MG CAPSULE PO SCH (22:59)
[2025-09-15] VITALS (8 sets, daily range): BP systolic 78–113; BP diastolic 44–85; PULSE 70–93; RESP 12–20; TEMP 97.8–99.1; O2SAT 92–100
[2025-09-15] MEDS ORDERED: HEPARIN SODIUM,PORCINE 5,000 UNITS/ML VIAL SQ SCH
[2025-09-15] MEDS: MIDODRINE HCL 5 MG TABLET PO ONE (01:04)
[2025-09-15] MEDS ORDERED: MIDO5TAB29 PO (01:24)
[2025-09-15] MEDS ORDERED: SEVE800T7 PO (01:25)
[2025-09-15] MEDS: ALBUMIN HUMAN 5%-12.5GM/250ML 250 ML IV ONE (03:03)
[2025-09-15 06:24] LABS: PLATELET COUNT (AUTO) 340 K/uL (150-450); RED BLOOD CELL COUNT(AUTO) 4.22 MIL/uL (4.50-5.90); RED CELL DISTRIBUTION WIDTH 18.2 % (11.5-14.5); WHITE BLOOD COUNT (AUTO) 9.9 K/uL (4.5-11.0)
[2025-09-15] MEDS ORDERED: NOREPINEPHRINE 8 MG/0.9 % NACL 250 ML IV PRN (07:00)
[2025-09-15 07:39] LABS: CALCIUM, TOTAL 9.7 mg/dL (8.8-10.5); CREATININE 7.04 mg/dL (0.60-1.30); GLOMERULAR FILTR. RATE CALC 8.0 mL/min (>60); GLUCOSE,RANDOM 87.0 mg/dL (70-110); SODIUM SERUM 133.0 mmol/L (136-145); UREA NITROGEN, BLOOD 39.0 mg/dL (7-18)
[2025-09-15] MEDS: MIDODRINE HCL 5 MG TABLET PO SCH ×2 (08:47→16:27)
[2025-09-15] MEDS: ETHYL ALCOHOL 62% ANTISEPTIC NASAL SANITIZER 0.6 ML AMPUL NASAL SCH (08:47)
[2025-09-15] MEDS: ATORVASTATIN CALCIUM 20 MG TABLET PO SCH (08:47)
[2025-09-15] MEDS: ASPIRIN 81 MG DR TABLET PO SCH (08:47)
[2025-09-15] MEDS: EPOETIN ALFA 10,000 UNITS/ML 2 ML VIAL SQ SCH (09:38)
[2025-09-15] MEDS: ACETAMINOPHEN 325 MG TABLET PO PRN (10:43)
[2025-09-15] MEDS: SEVELAMER CARBONATE 800 MG TABLET PO SCH (16:27)
[2025-09-16] VITALS (18 sets, daily range): BP systolic 90–149; BP diastolic 49–90; PULSE 55–100; RESP 8–24; TEMP 97.1–98.8; O2SAT 92–100
[2025-09-16 06:14] LABS: PLATELET COUNT (AUTO) 312 K/uL (150-450); RED BLOOD CELL COUNT(AUTO) 3.97 MIL/uL (4.50-5.90); RED CELL DISTRIBUTION WIDTH 18.7 % (11.5-14.5); WHITE BLOOD COUNT (AUTO) 8.9 K/uL (4.5-11.0)
[2025-09-16 06:20] LABS: CALCIUM, TOTAL 9.6 mg/dL (8.8-10.5); CREATININE 10.01 mg/dL (0.60-1.30); GLOMERULAR FILTR. RATE CALC 5.0 mL/min (>60); GLUCOSE,RANDOM 93.0 mg/dL (70-110); SODIUM SERUM 135.0 mmol/L (136-145); UREA NITROGEN, BLOOD 65.0 mg/dL (7-18)
[2025-09-16 06:36] LABS: PHOSPHORUS 6.2 mg/dL (2.5-4.9)
[2025-09-16 08:24] LABS: TROPONIN I-HIGH SENSITIVITY 12 ng/L (<76)
[2025-09-16] MEDS ORDERED: LIDOCAINE/PF 1% 2 ML VIAL IV ONE (12:00)
[2025-09-16 12:05] LABS: GLUCOMETER DEV NAME(LOC) ICU.S7; GLUCOSE,POINT OF CARE 97 MG/DL (70-110)
[2025-09-16] MEDS ORDERED: SODIUM CHLORIDE 0.9% 2,000 ML ONE (13:20)
[2025-09-16] MEDS ORDERED: ROSU20TA98 PO (14:14)
[2025-09-16] MEDS ORDERED: CLOT15CR23 TP (14:14)
[2025-09-16] MEDS: LIDOCAINE/PF 1% 2 ML VIAL ID ONE (14:25)
[2025-09-16] MEDS: SENNOSIDES 8.6 MG TABLET PO SCH (20:26)
[2025-09-17 04:15] VITALS: BP 93/54; PULSE 76; RESP 17; TEMP 98.4; O2SAT 99
[2025-09-17 08:00] VITALS: BP 88/54; PULSE 80; RESP 20; TEMP 98.4; O2SAT 100
[2025-09-17 09:37] LABS: PLATELET COUNT (AUTO) 308 K/uL (150-450); RED BLOOD CELL COUNT(AUTO) 4.14 MIL/uL (4.50-5.90); RED CELL DISTRIBUTION WIDTH 18.7 % (11.5-14.5); WHITE BLOOD COUNT (AUTO) 12.2 K/uL (4.5-11.0)
[2025-09-17 09:43] LABS: CALCIUM, TOTAL 9.0 mg/dL (8.8-10.5); CREATININE 7.94 mg/dL (0.60-1.30); GLOMERULAR FILTR. RATE CALC 7.0 mL/min (>60); GLUCOSE,RANDOM 113.0 mg/dL (70-110); SODIUM SERUM 136.0 mmol/L (136-145); UREA NITROGEN, BLOOD 42.0 mg/dL (7-18)
[2025-09-17 11:05] VITALS: BP 97/61
[2025-09-17] MEDS: LACTULOSE 20 GM/30 ML SOLUTION UDCUP PO ONE (12:22)
[2025-09-17 16:00] VITALS: BP 106/67; PULSE 78; RESP 19; TEMP 98.1; O2SAT 100
[2025-09-17] MEDS ORDERED: MIDO5TAB29 PO (16:25)
[2025-09-17] MEDS ORDERED: SEVE800T7 PO (16:25)
[2025-09-17 20:29] VITALS: BP 105/81; PULSE 82; RESP 19; TEMP 98.1; O2SAT 100
[2025-09-18 04:26] VITALS: BP 108/60; PULSE 84; RESP 20; TEMP 97.7; O2SAT 100
[2025-09-18 07:22] VITALS: BP 118/67; PULSE 70; RESP 18; TEMP 97.7; O2SAT 99
[2025-09-18 09:11] VITALS: BP 107/60; PULSE 74; RESP 18; TEMP 97.9; O2SAT 100
[2025-09-18] MEDS: LACTULOSE 200 GM/300 ML RECTAL SOLUTION PR ONE (11:00)
[2025-09-18 15:23] VITALS: BP 110/55; PULSE 78; RESP 20; TEMP 97.5; O2SAT 99
[2025-09-18 20:00] VITALS: BP 137/70; PULSE 71; RESP 18; TEMP 98.2; O2SAT 100
[2025-09-19 04:00] VITALS: BP 96/65; PULSE 70; RESP 18; TEMP 98.1; O2SAT 100
[2025-09-19 08:00] VITALS: BP 114/68; PULSE 71; RESP 20; TEMP 97.7; O2SAT 99
[2025-09-20] MEDS ORDERED: EPOETIN ALFA 10,000 UNITS/ML 2 ML VIAL SQ SCH (09:00)
== END 2025-09-19 16:30 | disposition home or self-care (01) | DRG 314 ==
LOC: EMS 15:49 → EDH 20:42 → 5S 23:35 → ICU 09-15 04:40 → 4E 09-16 19:44
PROVIDERS: ADMIT Internal Medicine; ATTEND Internal Medicine
PROC: 05HD33Z Insertion of Infusion Device into Right Cephalic Vein, Percutaneous Approach (ICD-10-PCS; principal; 2025-09-15)
PROC: B54MZZA Ultrasonography of Right Upper Extremity Veins, Guidance (ICD-10-PCS; 2025-09-15)
PROC: 5A1D70Z Performance of Urinary Filtration, Intermittent, Less than 6 Hours Per Day (ICD-10-PCS; 2025-09-16)
PROC: 5A1D70Z Performance of Urinary Filtration, Intermittent, Less than 6 Hours Per Day (ICD-10-PCS; 2025-09-18)
DX: I95.9 Hypotension, unspecified (principal); N18.6 End stage renal disease; J81.1 Chronic pulmonary edema; Q61.2 Polycystic kidney, adult type; I15.1 Hypertension secondary to other renal disorders; E83.39 Other disorders of phosphorus metabolism; D63.1 Anemia in chronic kidney disease; Z99.2 Dependence on renal dialysis; E66.01 Morbid (severe) obesity due to excess calories; N25.81 Secondary hyperparathyroidism of renal origin; E87.1 Hypo-osmolality and hyponatremia; Z68.41 Body mass index [BMI] 40.0-44.9, adult; R55 Syncope and collapse; K59.00 Constipation, unspecified; E86.1 Hypovolemia; R53.82 Chronic fatigue, unspecified; Z82.71 Family history of polycystic kidney
CPT/HCPCS: 36245; 36569; 71045; 74018; 76937; 80048; 82962; 83735; 83880; 84100; 84443; 84484; 85025; 85610; 85730; 87081; 87340; 90935; 93005; 93306; 96361; 96365; 97110; 97116; 97163; 97166; 97530; 97535; 99285; G0378; J0885; J3490; J7030; J7050; P9041; 36415-L1; 36415-TC